=== PATIENT | male | born 1995 | race Caucasian/White ===

== ENCOUNTER → 2018-07-23 | Outpatient (CLI) | payer OTHER ==
--- NOTE | 2018-07-23 16:43 | RADIOLOGY IMAGING REPORT ---
[place] [facility] [place] NAME: Radha Hernandez : 1995 MR: [id number] V: [id number] EXAM DATE: ORDERING PHYSICIAN: SHERRI SUGGS TECHNOLOGIST: Location: [facility] [place] Patient: Radha Hernandez : 1995 Visit/Account:[id number] Date of Sevice: 07/23/2018 Exam type: SHOULDER MIN 2 VIEWS LEFT History: Dislocated left shoulder Monday, popped back in Comparison: None. Findings: The left shoulder appears to be in good anatomic alignment. Is a subtle irregularity seen along the superior lateral aspect of the left humeral head. A small Hill-Sachs deformity cannot be totally exc luded. The left glenoid appears intact IMPRESSION: 1. No evidence of left shoulder dislocation at this time Slight irregularity along the superior lateral aspect of the left humeral head. A Hill-Sachs deformi ty cannot be totally excluded Report Dictated By: Mary Jo High MD at 07/23/2018 4:37 PM Report E-Signed By: Mary Jo High MD at 07/23/2018 4:39 PM WSN:[email or web address]
== END ==
LOC: RAD 14:39
PROVIDERS: ATTEND Emergency Medicine Sports Medicine
DX: S43.005A Unspecified dislocation of left shoulder joint, initial encounter (principal)

== ENCOUNTER 2018-08-09 10:05 | Outpatient (RCR) | payer OTHER ==
[2018-08-15] MEDS ORDERED: IOPAMIDOL-200 50 ML VIAL IS ONE (11:18)
[2018-08-15] MEDS ORDERED: GADOBENATE 529MG/1ML 5 ML VIAL ONE (11:18)
--- NOTE | 2018-08-15 13:45 | RADIOLOGY IMAGING REPORT ---
FACILITY: [facility] PATIENT NAME: Radha Hernandez : 1995 MR: [id number] V: [id number] EXAM DATE: ORDERING PHYSICIAN: SHERRI SUGGS TECHNOLOGIST: Location: [facility] Patient: Radha Hernandez : 1995 Visit/Account:[id number] Date of Sevice: 08/15/2018 Fluoroscopy guided pre-MRI left shoulder contrast injection. HISTORY: Left shoulder pain, recent left shoulder dislocation. COMPARISON: 07/23/2018. The procedure and risks were explained to the patient who agreed to proceed. Following sterile prep a nd drape the anterior aspect of the left shoulder was anesthetized with 5 ml one percent lidocaine wi thout epinephrine. Under fluoroscopic guidance a 22 gauge spinal needle was advanced into the glenohu meral joint. Next, 7 ml dilute gadolinium/Isovue solution was injected. The needle was removed and a sterile dressing applied. The patient tolerated the procedure well without complications. FLUOROSCOPY TIME: 0.8 minutes. DOSE: DAP was 45.88 mGy. IMPRESSION: Pre-MRI left shoulder contrast injection. Report Dictated By: Severiano Rothman MD at 08/15/2018 1:37 PM Report E-Signed By: Severiano Rothman MD at 08/15/2018 1:41 PM WSN:[email or web address]
--- NOTE | 2018-08-15 16:08 | RADIOLOGY IMAGING REPORT ---
[place] [facility] [place]: Radha Hernandez : 1995 MR: [id number] V: [id number] EXAM DATE: ORDERING PHYSICIAN: SHERRI SUGGS TECHNOLOGIST: Location: [facility] [place] Patient: Radha Hernandez : 1995 Visit/Account:[id number] Date of Sevice: 08/15/2018 MR arthrogram left shoulder Indication: Left shoulder dislocation. Comparison: None available. Technique: Sagittal and coronal T1 weighted fat saturated and T2-weighted fat saturated as well as ax ial T1-weighted and a gradient echo images were obtained through the left shoulder after intra-articu lar administration of gadolinium. Findings: Rotator cuff: There is minimal bursal surface fraying distal supraspinatus fibers. Infraspinatus is intact as well as the teres minor and subscapularis. Biceps tendon: The intra-articular portion of the tendon is intact and unremarkable. Extra-articular portion of the long head of biceps tendon appears unremarkable within the bicipital g roove. AC joint and acromion: There are no significant acromioclavicular degenerative changes. Slightly low-lying appearance acromi on seen which can predispose to impingement. Labrum and capsular ligaments: There is an irregular nondisplaced Bankart lesion with the anterior-inferior labrum with contrast ext ending into the tear on image 10 of series 4 and slight medial displacement of the tear and the media l periosteum of the glenoid. Capsular ligaments are intact with no evidence of focal abnormality. Bones and cartilage: There is also a focal small defect with mild surrounding marrow edema within the posterior superior h umeral head related to a Hill-Sachs lesion likely secondary to prior anterior dislocation. No focal chondral defect glenohumeral joint cartilage.. Effusion, bursitis: There is no contrast seen to extend into the subacromial/subdeltoid bursa. IMPRESSION: 1. Findings show evidence of prior anterior dislocation with Hill-Sachs lesion as well as displaced a nterior-inferior labral tear. Report Dictated By: Vineet Armstrong MD at 08/15/2018 4:00 PM Report E-Signed By: Vineet Armstrong MD at 08/15/2018 4:04 PM WSN:[email or web address]
== END 2018-08-15 18:00 | disposition home or self-care (01) ==
LOC: EDSTATUS 10:05 → MRI 10:05
PROVIDERS: ATTEND Emergency Medicine Sports Medicine
DX: S43.005A Unspecified dislocation of left shoulder joint, initial encounter (principal); S43.432A Superior glenoid labrum lesion of left shoulder, initial encounter; Y92.39 Other specified sports and athletic area as the place of occurrence of the external cause
CPT/HCPCS: 73222; 77002; A9577; Q9966